=== PATIENT | female | born 1980 | race American Indian/Alaskan Native ===

== ENCOUNTER 2017-07-18 07:18 | Emergency (ER) | payer OTHER ==
[2017-07-18 08:47] LABS: Basophils % (Auto) 0.1 % (0.0-1.8); Eosinophils % (Auto) 0.3 % (0.0-4.3); Hematocrit 43.5 % (30.3-42.9); Hemoglobin 14.6 gm/dl (10.1-14.3); Lymphocytes # (Auto) 0.8 K/mm3 (1.2-5.4); Lymphocytes % (Auto) 10.9 % (13.4-35.0); Mean Corpuscular HGB Conc 34 % (30-34); Mean Corpuscular Hemoglobin 31 pg (28-32); Mean Corpuscular Volume 93 fl (79-97); Monocytes # (Auto) 0.4 K/mm3 (0.0-0.8); Monocytes % (Auto) 4.9 % (0.0-7.3); Platelet Count 316 K/mm3 (140-440); Red Cell Distribution Width 14.2 % (13.2-15.2)
[2017-07-18 08:56] LABS: Bacteria,Urine 1+ /HPF (Negative); Bilirubin,Urine NEG (Negative); Blood,Urine NEG (Negative); Color,Urine Yellow (Yellow); Mucus,Urine 2+ /HPF; Nitrite,Urine NEG (Negative); Protein,Urine <15 mg/dL mg/dL (Negative); RBC,Urine < 1.0 /HPF (0.0-6.0); Urobilinogen,Urine < 2.0 mg/dL (<2.0)
[2017-07-18 09:01] LABS: HCG Qualitative,Urine Negative (Negative)
[2017-07-18 09:10] LABS: Alanine Aminotransferase 16 units/L (7-56); Albumin 4.1 g/dL (3.9-5); BUN/Creatinine Ratio 19; Blood Urea Nitrogen 15 mg/dL (7-17); Calcium 8.2 mg/dL (8.4-10.2); Hemolysis Index 13; Lipase 15 units/L (13-60)
--- NOTE | 2017-07-18 11:38 | Emergency Department Report ---
HPI - General Chief Complaint: Nausea/Vomiting/Diarrhea Time Seen by Provider: 07/18/17 11:24 - HPI HPI: Patient reports that she is vomiting and abdominal cramps and nausea with some diarrhea and she says that this has gone on for 2 days that her child has been exposed to this and then she thinks she gets the same symptoms from her child. Reports abdominal cramping 6 out of 10 that comes and goes. Diarrhea 1 today nausea without any vomiting. Denies any fever or chills. Denies any back pain or urinary burning frequency or urgency. Last menstrual period was 06/30/2017. ED Past Medical Hx - Past Medical History Previous Medical History?: Yes Additional medical history: Vaginal delivery x 2, Uterine fibroids, Excessive vaginal bleeding with menses - Surgical History Past Surgical History?: Yes Additional Surgical History: x 2 - Family History Family history: no significant - Social History Smoking Status: Never Smoker Substance Use Type: Alcohol - Medications Home Medications: Home Medications Medication Instructions Recorded Confirmed Last Taken Type Acetaminophen/Codeine [Tylenol #3] 1 tab PO QHS #10 tablet 02/08/15 Unknown Rx Ibuprofen [Motrin 800 MG tab] 800 mg PO Q8HR PRN #60 tablet 02/08/15 Unknown Rx Dicyclomine [Bentyl] 40 mg PO Q6H PRN #12 tablet 07/18/17 Unknown Rx Nitrofurantoin Monohyd/M-Cryst 100 mg PO Q12H 5 Days #10 capsule 07/18/17 Unknown Rx [Macrobid 100 mg Capsule] Promethazine [Phenergan TAB] 25 mg PO Q6HR PRN #12 tab 07/18/17 Unknown Rx ED Review of Systems ROS: Stated complaint: DIARRHEA, CRAMP, NAUSEA Other details as noted in HPI Comment: All other systems reviewed and negative Constitutional: no symptoms reported ENT: denies: throat pain, congestion Respiratory: no symptoms reported Cardiovascular: denies: chest pain, palpitations, dyspnea on exertion, orthopnea , edema, syncope, paroxysmal nocturnal dyspnea Gastrointestinal: abdominal pain, nausea, vomiting, diarrhea. denies: constipation, hematemesis, melena, hematochezia Genitourinary: denies: urgency, dysuria, hematuria, discharge, abnormal menses Musculoskeletal: denies: back pain, joint swelling, arthralgia, myalgia Skin: denies: rash Neurological: denies: headache, numbness, paresthesias, abnormal gait Physical Exam - Physical Exam Vital Signs: Vital Signs 07/18/17 07:58 Temperature 98.1 F Pulse Rate 104 H Respiratory 20 Rate Blood Pressure 120/83 O2 Sat by Pulse 95 Oximetry Vital Signs 07/18/17 07/18/17 07:58 12:06 Temperature 98.1 F 86.9 F L Pulse Rate 104 H 106 H Respiratory 20 16 Rate Blood Pressure 120/83 Blood Pressure 127/81 [Right] O2 Sat by Pulse 95 98 Oximetry Vital Signs 07/18/17 07/18/17 07/18/17 07:58 12:06 12:45 Temperature 98.1 F 86.9 F L Pulse Rate 104 H 106 H 92 H Respiratory 20 16 Rate Blood Pressure 120/83 Blood Pressure 127/81 [Right] O2 Sat by Pulse 95 98 Oximetry General: This is a 37-year-old female well-nourished well-developed in no acute distress ED Course Vital Signs 07/18/17 07:58 Temperature 98.1 F Pulse Rate 104 H Respiratory 20 Rate Blood Pressure 120/83 O2 Sat by Pulse 95 Oximetry Vital Signs 07/18/17 07/18/17 07/18/17 07:58 12:06 12:45 Temperature 98.1 F 86.9 F L Pulse Rate 104 H 106 H 92 H Respiratory 20 16 Rate Blood Pressure 120/83 Blood Pressure 127/81 [Right] O2 Sat by Pulse 95 98 Oximetry - Reevaluation(s) Reevaluation #1: 07/18/17 12:50 Patient is stable she received Bentyl 40 mg by mouth in emergency room, [facility] and was able to tolerate several cups of juice without any vomiting or diarrhea ED Medical Decision Making - Lab Data Result diagrams: 07/18/17 08:22 07/18/17 08:22 Lab Results 07/18/17 07/18/17 07/18/17 Range/Units 08:22 08:22 08:32 WBC 7.4 (4.5-11.0) K/mm3 RBC 4.70 (3.65-5.03) M/mm3 Hgb 14.6 H (10.1-14.3) gm/dl Hct 43.5 H (30.3-42.9) % MCV 93 (79-97) fl MCH 31 (28-32) pg MCHC 34 (30-34) % RDW 14.2 (13.2-15.2) % Plt Count 316 (140-440) K/mm3 Lymph % (Auto) 10.9 L (13.4-35.0) % [place] % (Auto) 4.9 (0.0-7.3) % Eos % (Auto) 0.3 (0.0-4.3) % Baso % (Auto) 0.1 (0.0-1.8) % Lymph # 0.8 L (1.2-5.4) K/mm3 [place] # 0.4 (0.0-0.8) K/mm3 Eos # 0.0 (0.0-0.4) K/mm3 Baso # 0.0 (0.0-0.1) K/mm3 Seg Neutrophils % 83.8 H (40.0-70.0) % Seg Neutrophils # 6.2 (1.8-7.7) K/mm3 Sodium 140 (137-145) mmol/L Potassium 4.1 (3.6-5.0) mmol/L Chloride 104.6 (98-107) mmol/L Carbon Dioxide 24 (22-30) mmol/L Anion Gap 16 mmol/L BUN 15 (7-17) mg/dL Creatinine 0.8 (0.7-1.2) mg/dL Estimated GFR > 60 ml/min BUN/Creatinine Ratio 19 % Glucose 112 H (65-100) mg/dL Calcium 8.2 L (8.4-10.2) mg/dL Total Bilirubin 0.40 (0.1-1.2) mg/dL AST 19 (5-40) units/L ALT 16 (7-56) units/L Alkaline Phosphatase 52 (35-129) units/L Total Protein 7.5 (6.3-8.2) g/dL Albumin 4.1 (3.9-5) g/dL Albumin/Globulin Ratio 1.2 % Lipase 15 (13-60) units/L Urine Color Yellow (Yellow) Urine Turbidity Clear (Clear) Urine pH 5.0 (5.0-7.0) Ur Specific [place] 1.031 H (1.003-1.030) Urine Protein <15 mg/dl (Negative) mg/dL Urine Glucose (UA) Neg (Negative) mg/dL Urine Ketones Tr (Negative) mg/dL Urine Blood Neg (Negative) Urine Nitrite Neg (Negative) Urine Bilirubin Neg (Negative) Urine Urobilinogen < 2.0 (<2.0) mg/dL Ur Leukocyte Esterase Tr (Negative) Urine WBC (Auto) 1.0 (0.0-6.0) /HPF Urine RBC (Auto) < 1.0 (0.0-6.0) /HPF U Epithel Cells (Auto) 11.0 (0-13.0) /HPF Urine Bacteria (Auto) 1+ (Negative) /HPF Urine Mucus 2+ /HPF Urine HCG, Qual Negative (Negative) Urine culture pending - Medical Decision Making ED course: Here with nausea vomiting and diarrhea that started 2 days ago she had one episode and believes that she got this from her son who is in a daycare. She states she is having some stomach cramping that come and go. Laboratory results CBC with hemoconcentration UA with increased specific gravity which suggests dehydration, she has trace ketone also in her urine. Patient had small leukocyte esterase with 1+ bacteria. test was negative. Patient was given Zofran 8 mg ODT and Bentyl 40 mg by mouth. She was orally challenged emergency room and tolerated 2 cups of apple juice without any nausea or vomiting. This resulted patient and she has small UTI, nausea and vomiting in with diarrhea which is episodic. Patient voiced understanding the discharge instruction treatment plan and need to follow up with her primary care and/or to return to the emergency room if symptoms worsen. Discharged home from ED in stable condition with prescription for Bentyl, Phenergan and Macrobid. Critical care attestation.: If time is entered above; I have spent that time in minutes in the direct care of this critically ill patient, excluding procedure time. ED Disposition Clinical Impression: Nausea vomiting and diarrhea, Abdominal cramping, Mild dehydration UTI (urinary tract infection) Qualifiers: Urinary tract infection type: acute cystitis Hematuria presence: without hematuria Qualified Code(s): N30.00 - Acute cystitis without hematuria Disposition: TO HOME OR SELFCARE Is pt being admited?: No Does the pt Need Aspirin: No Condition: Stable Instructions: Dehydration (ED), Acute Nausea and Vomiting (ED), Acute Diarrhea (ED), Abdominal Pain (ED) Additional Instructions: increased fluid intake to 2-3 L of fluid to include water, Gatorade and/or apple juice. Take medication as prescribed for stomach cramping and nausea Practice good hand hygiene Follow-up with her primary care physician in one to 2 days Take Macrobid for urinary tract infection Prescriptions: Dicyclomine [Bentyl] 40 mg PO Q6H PRN #12 tablet PRN Reason: GASTROENTERITIS Nitrofurantoin Monohyd/M-Cryst [Macrobid 100 mg Capsule] 100 mg PO Q12H 5 Days # 10 capsule Promethazine [Phenergan TAB] 25 mg PO Q6HR PRN #12 tab PRN Reason: Nausea Referrals: [facility] [Outside] - 07/20/17 Forms: Work/School Release Form(ED)
[2017-07-18] MEDS ORDERED: ZOFRAN ODT PO ONE (11:39)
[2017-07-18] MEDS ORDERED: BENTYL PO ONE (11:39)
[2017-07-18 12:08] VITALS: BP 127/81
== END 2017-07-18 13:09 | disposition home or self-care (01) ==
LOC: ED 07:18
DX: N30.00 Acute cystitis without hematuria (principal); R11.2 Nausea with vomiting, unspecified; R19.7 Diarrhea, unspecified; E78.00 Pure hypercholesterolemia, unspecified
CPT/HCPCS: 36415; 80053; 81001; 81025; 83690; 85025; 87086; 99283; Q0162

== ENCOUNTER 2018-03-18 10:50 | Emergency (ER) | payer OTHER ==
[2018-03-18 11:17] VITALS: BP 131/85
--- NOTE | 2018-03-18 11:30 | Emergency Department Report ---
ED Rash HPI - HPI Chief Complaint: Skin Rash Stated Complaint: ITCHING Time Seen by Provider: 03/18/18 11:23 Duration: 5 Days Location: Chest, Back, Abdomen, Upper Extremities, Lower Extremities Suspected Cause: Insect Rash Symptoms: Yes Itching, No Facial Swelling, No Tongue/Oral Swelling, No Breathing Difficulties, No Choking Sensation, No Wheezing/Dyspnea, No Peeling, No Blistering, No Fever, No Lightheaded, No Malaise, No Myalgias Severity: moderate Other History: known exposure to scabies. here w her child who has the same ED Review of Systems ROS: Stated complaint: ITCHING Other details as noted in HPI Comment: All other systems reviewed and negative Constitutional: denies: chills, fever Eyes: denies: eye pain ENT: denies: ear pain Respiratory: no symptoms reported. denies: cough Cardiovascular: denies: palpitations Endocrine: denies: excessive sweating Gastrointestinal: denies: abdominal pain Genitourinary: denies: urgency Musculoskeletal: denies: back pain Skin: rash Neurological: denies: headache Psychiatric: denies: anxiety Hematological/Lymphatic: denies: easy bleeding ED Past Medical Hx - Past Medical History Previous Medical History?: No Additional medical history: Vaginal delivery x 2, Uterine fibroids, Excessive vaginal bleeding with menses - Surgical History Past Surgical History?: No Additional Surgical History: x 2 - Family History Family history: no significant - Social History Smoking Status: Never Smoker Substance Use Type: Alcohol - Medications Home Medications: Home Medications Medication Instructions Recorded Confirmed Last Taken Type Permethrin [Elimite] 60 gm TP ONCE #1 cream..g. 03/18/18 Unknown Rx Rash Exam - Exam General: Vital signs noted. No distress. Alert and acting appropriately. HEENT: No Periorbital Edema, No Conjuctival Injection, No Chemosis, No Perioral Edema, No Tongue Edema, No Uvular Edema, No Compromised Airway, No Drooling Lungs: Yes Good Air Exchange, No Wheezes, No Ronchi, No Stridor, No Cough, No Labored Respirations, No Retractions, No Use of Accessory Muscles, No Other Abnormal Lung Sounds Heart: Yes Regular, No Murmur Skin: Yes Other (macular rash of scabies. arms, legs and torso; kwown exposure) , No Urticarial Rash, No Maculopapular Rash, No Morbilliform rash, No Bulla(e), No Excoriations, No Weeping, No Tenderness, No Erythema, No Edema, No Encrustations Other: Positive: Abdomen Normal, Neurologic Normal, Musculoskeletal Normal ED Course Vital Signs 03/18/18 11:15 Temperature 98.1 F Pulse Rate 94 H Respiratory 18 Rate Blood Pressure 131/85 O2 Sat by Pulse 98 Oximetry ED Medical Decision Making - Differential Diagnosis known exposure to scabies Critical care attestation.: If time is entered above; I have spent that time in minutes in the direct care of this critically ill patient, excluding procedure time. ED Disposition Clinical Impression: Scabies Disposition: DC-01 TO HOME OR SELFCARE Is pt being admited?: No Does the pt Need Aspirin: No Condition: Stable Instructions: Scabies (ED) Additional Instructions: benadryl for itching clean home as discussed med as ordered Prescriptions: Permethrin [Elimite] 60 gm TP ONCE #1 cream..g. Referrals: NIRAV JHA MD [Referring] - 3-5 Days Time of Disposition: 11:27
== END 2018-03-18 12:04 | disposition home or self-care (01) ==
LOC: ED 10:50
DX: B86 Scabies (principal)
CPT/HCPCS: 99282

== ENCOUNTER 2020-02-19 22:12 | Emergency (ER) | payer SELFPAY ==
[2020-02-19 23:46] LABS: Basophils # (Auto) 0.1 K/mm3 (0.0-0.1); Basophils % (Auto) 0.7 % (0.0-1.8); Eosinophils % (Auto) 0.5 % (0.0-4.3); Hematocrit 39.9 % (30.3-42.9); Hemoglobin 13.3 gm/dl (10.1-14.3); Lymphocytes # (Auto) 3.2 K/mm3 (1.2-5.4); Lymphocytes % (Auto) 41.5 % (13.4-35.0); Mean Corpuscular HGB Conc 33 % (30-34); Mean Corpuscular Volume 97 fl (79-97); Monocytes # (Auto) 0.6 K/mm3 (0.0-0.8); Monocytes % (Auto) 8.2 % (0.0-7.3); Platelet Count 272 K/mm3 (140-440); Red Blood Count 4.12 M/mm3 (3.65-5.03); Red Cell Distribution Width 13.2 % (13.2-15.2)
[2020-02-20 00:09] LABS: Alanine Aminotransferase 14 units/L (7-56); Albumin 4.2 g/dL (3.9-5); BUN/Creatinine Ratio 21; Blood Urea Nitrogen 19 mg/dL (7-17); Calcium 9.2 mg/dL (8.4-10.2); Hemolysis Index 14
[2020-02-20 01:28] LABS: Bacteria,Urine 1+ /HPF (Negative); Bilirubin,Urine NEG (Negative); Blood,Urine NEG (Negative); Color,Urine Amber (Yellow); Mucus,Urine FEW /HPF; Protein,Urine <15 mg/dL mg/dL (Negative); Urobilinogen,Urine < 2.0 mg/dL (<2.0)
--- NOTE | 2020-02-20 04:03 | Cat Scan Report ---
CT abdomen pelvis w con INDICATION: Patient complains of R.L.Q. abdominal pain. TECHNIQUE: All CT scans at this location are performed using the following dose modulation technique: Automated exposure control. CONTRAST: Omnipaque 300 100 cc IV injection. COMPARISON: None available. CT ABDOMEN: The parenchymal organs are unremarkable in appearance. Negative for abdominal mass, fluid or inflammation. The bowel is not dilated or thickened. A fat-containing umbilical hernia is small. CT PELVIS: A short appendix is identified which is mildly prominent in size but air-filled. There is no adjacent inflammation. IMPRESSION: Mildly prominent appendix without adjacent inflammation. Signer Name: Carmelo Henriquez MD Signed: 02/20/2020 3:58 AM Workstation Name: [id number]
[2020-02-20 04:45] VITALS: BP 128/93
--- NOTE | 2020-02-20 05:11 | Emergency Department Report ---
ED Abdominal Pain HPI - General Chief Complaint: Abdominal Pain Stated Complaint: ABD CRAMPS/SPOTTING/NAUSEA/HEADACHE Source: patient Mode of arrival: Ambulatory Limitations: No Limitations - History of Present Illness Initial Comments: Patient is a 40-year-old -[place] female with no past medical history presents to the ED with complaint of acute onset persistent diffuse lower abdominal pain, worse in the right lower quadrant area intermittently for the last 1 week, worse in the last 2 days. Patient also complains of nausea and vomiting intermittently. Patient denies vaginal bleeding, vaginal discharge, dizziness, syncope, fever, chills, dysuria, urinary frequency and urgency, dyspareunia, low back pain, chest pain or shortness of breath, diarrhea or change in vision, heavy lifting, traumatic injury or low back pain. MD Complaint: abdominal pain, other (nausea and vomiting) -: Sudden, week(s) (1) Location: RLQ, suprapubic Radiation: RLQ, suprapubic Migration to: no migration Severity scale (0 -10): 6 Quality: cramping, aching, sharp Consistency: constant Improves With: nothing Worsens With: nothing Associated Symptoms: denies other symptoms, nausea, vomiting. denies: diarrhea, fever, chills, dysuria, hematemesis, hematochezia, melena, hematuria, anorexia, other - Related Data LMP (females 10-50): last week Previous Rx's Medication Instructions Recorded Last Taken Type Permethrin [Elimite] 60 gm TP ONCE #1 cream..g. 03/18/18 Unknown Rx Dicyclomine [Bentyl] 20 mg PO Q6H PRN #30 tablet 02/20/20 Unknown Rx Naproxen 500 mg PO Q12H PRN #24 tablet 02/20/20 Unknown Rx Ondansetron [Zofran Odt] 4 mg PO Q6HR PRN #20 tab.rapdis 02/20/20 Unknown Rx Allergies Allergy/AdvReac Type Severity Reaction Status Date / Time No Known Allergies Allergy Unverified 02/08/15 09:53 ED Review of Systems ROS: Stated complaint: ABD CRAMPS/SPOTTING/NAUSEA/HEADACHE Other details as noted in HPI Constitutional: denies: chills, fever Eyes: denies: eye pain, eye discharge, vision change ENT: denies: ear pain, throat pain Respiratory: denies: cough, shortness of breath, wheezing Cardiovascular: denies: chest pain, palpitations Endocrine: no symptoms reported Gastrointestinal: abdominal pain, nausea, vomiting. denies: diarrhea Genitourinary: denies: urgency, dysuria, discharge Musculoskeletal: denies: back pain, joint swelling, arthralgia Skin: denies: rash, lesions Neurological: denies: headache, weakness, paresthesias Psychiatric: denies: anxiety, depression Hematological/Lymphatic: denies: easy bleeding, easy bruising ED Past Medical Hx - Past Medical History Previous Medical History?: No Additional medical history: Vaginal delivery x 2, Uterine fibroids, Excessive vaginal bleeding with menses - Surgical History Additional Surgical History: x 2 - Social History Smoking Status: Never Smoker Substance Use Type: Alcohol - Medications Home Medications: Home Medications Medication Instructions Recorded Confirmed Last Taken Type Permethrin [Elimite] 60 gm TP ONCE #1 cream..g. 03/18/18 Unknown Rx Dicyclomine [Bentyl] 20 mg PO Q6H PRN #30 tablet 02/20/20 Unknown Rx Naproxen 500 mg PO Q12H PRN #24 tablet 02/20/20 Unknown Rx Ondansetron [Zofran Odt] 4 mg PO Q6HR PRN #20 tab.rapdis 02/20/20 Unknown Rx ED Physical Exam - General Limitations: No Limitations General appearance: alert, in no apparent distress - Head Head exam: Present: atraumatic, normocephalic, normal inspection - Eye Eye exam: Present: normal appearance, PERRL, EOMI - ENT ENT exam: Present: normal exam, normal orophraynx, mucous membranes moist, TM's normal bilaterally, normal external ear exam - Neck Neck exam: Present: normal inspection. Absent: tenderness - Respiratory Respiratory exam: Present: normal lung sounds bilaterally. Absent: respiratory distress, wheezes, rales, rhonchi, chest wall tenderness, decreased breath sounds, prolonged expiratory - Cardiovascular Cardiovascular Exam: Present: regular rate, normal rhythm, normal heart sounds. Absent: systolic murmur, diastolic murmur, rubs, gallop - GI/Abdominal GI/Abdominal exam: Present: soft, tenderness (Palpable mild right lower quadrant tenderness), normal bowel sounds. Absent: distended, guarding, rebound, rigid, hyperactive bowel sounds, hypoactive bowel sounds, organomegaly - Extremities Exam Extremities exam: Present: normal inspection, full ROM, normal capillary refill - Back Exam Back exam: Present: normal inspection, full ROM. Absent: tenderness, CVA tenderness (R), CVA tenderness (L), muscle spasm, vertebral tenderness - Neurological Exam Neurological exam: Present: alert, oriented X3, CN II-XII intact, normal gait, reflexes normal - Psychiatric Psychiatric exam: Present: normal affect, normal mood - Skin Skin exam: Present: warm, dry, intact, normal color. Absent: rash ED Course Vital Signs 02/19/20 23:07 Temperature 98.2 F Pulse Rate 75 Respiratory 18 Rate Blood Pressure 128/93 O2 Sat by Pulse 99 Oximetry ED Medical Decision Making - Lab Data Result diagrams: 02/19/20 23:34 02/19/20 23:34 - Radiology Data Radiology results: report reviewed, image reviewed Findings [facility] [address] [place] [address] Cat Scan Report Signed Patient: ABELARDO PADRON MR#: [id number] : 1980 Acct:[id number] Age/Sex: 40 / F ADM Date: 02/19/20 Loc: ED Attending Dr: Ordering Physician: ARY ELKINS Date of Service: 02/20/20 Procedure(s): CT abdomen pelvis w con Accession Number(s): [id number] cc: ARY ELKINS CT abdomen pelvis w con INDICATION: Patient complains of R.L.Q. abdominal pain. TECHNIQUE: All CT scans at this location are performed using the following dose modulation technique: Automated exposure control. CONTRAST: Omnipaque 300 100 cc IV injection. COMPARISON: None available. CT ABDOMEN: The parenchymal organs are unremarkable in appearance. Negative for abdominal mass, fluid or inflammation. The bowel is not dilated or thickened. A fat-containing umbilical hernia is small. CT PELVIS: A short appendix is identified which is mildly prominent in size but air-filled. There is no adjacent inflammation. IMPRESSION: Mildly prominent appendix without adjacent inflammation. Signer Name: Carmelo Henriquez MD Signed: 02/20/2020 3:58 AM Workstation Name: [id number] Transcribed By: ES Dictated By: Carmelo Henriquez MD Electronically Authenticated By: Carmelo Henriquez MD Signed Date/Time: 02/20/20357 DD/ 2 TD/TT: - Medical Decision Making This is a 40-year-old -[place] female with no past medical history p resents to the ED with complaint of acute onset persistent diffuse lower abdominal pain, worse in the right lower quadrant area intermittently for the last 1 week, worse in the last 2 days. Patient also complains of nausea and vomiting intermittently. In the ED, patient is alert and oriented x3 and is not in distress with normal vital signs. Lab test results were reviewed and are all nonactionable including urinalysis. Patient was treated for pain and also given antiemetics in the ED. Abdomen pelvis CT scan with contrast showed a mildly prominent appendix without adjacent inflammation. On reevaluation, patient's pain is well controlled medications. These findings were discussed with the ED attending physician Dr. Dinero who agreed with the plan of care to discharge the patient home and have the patient return to the ED immediately if symptoms get worse since patient's lab test results are unremarkable and patient is hemodynamically stable and the abdomen pelvis CT scan with contrast showed no sign of acute appendicitis. - Differential Diagnosis Apendicitis; Ovarian cyst; UTI; Colitis; ; Kidney stones Critical care attestation.: If time is entered above; I have spent that time in minutes in the direct care of this critically ill patient, excluding procedure time. ED Disposition Clinical Impression: Acute abdominal pain in right lower quadrant, Nausea and vomiting in adult Disposition: DC-01 TO HOME OR SELFCARE Is pt being admited?: No Does the pt Need Aspirin: No Condition: Stable Instructions: Abdominal Pain (ED), Acute Nausea and Vomiting (ED) Additional Instructions: All lab test results are unremarkable. Abdomen pelvis CT scan with contrast shows a prominent appendix with no inflammation. Therefore based on your lab test results, imaging report, take medications with food, drink plenty of fluids and follow-up with your primary care physician in 3 to 5 days for reevaluation. Return to the emergency department immediately if your symptoms get worse especially in the next 3 to 5 days. Prescriptions: Dicyclomine [Bentyl] 20 mg PO Q6H PRN #30 tablet PRN Reason: Pain , Severe (7-10) Naproxen 500 mg PO Q12H PRN #24 tablet PRN Reason: Pain , Severe (7-10) Ondansetron [Zofran Odt] 4 mg PO Q6HR PRN #20 tab.rapdis PRN Reason: Nausea Referrals: [facility] [Provider Group] - 3-5 Days Forms: Work/School Release Form(ED) Time of Disposition: 05:08 Print Language: UZBEK
== END 2020-02-20 05:40 | disposition home or self-care (01) ==
LOC: ED 22:12
DX: R10.31 Right lower quadrant pain (principal); R11.2 Nausea with vomiting, unspecified; Z79.899 Other long term (current) drug therapy
CPT/HCPCS: 36415; 74177; 80053; 81001; 84703; 85025; 99284; Q9967